=== PATIENT | male | born 1995 | race American Indian/Alaskan Native ===

== ENCOUNTER 2016-11-23 21:35 | Emergency (ER) | payer MEDICAID, OTHER ==
--- NOTE | 2016-11-23 21:47 | EDM.PDOC ---
ED HPI GENERAL MEDICAL PROBLEM - General Chief Complaint: Abdominal Pain Stated Complaint: ABD PAIN Time Seen by Provider: 11/23/16 21:44 Source of Information: Reports: Patient History Limitations: Reports: No Limitations - History of Present Illness INITIAL COMMENTS - FREE TEXT/NARRATIVE: c/o abd' pain since Thursday, initially @ RLQ, then moved to periumb, unable eat anything pain on off and not going away. been holding down liquids OK. no diarrhoea. Middle Abdomen Pain Score (Numeric/FACES): 6 - Related Data Allergies Allergy/AdvReac Type Severity Reaction Status Date / Time Penicillins Allergy Cannot Verified 11/23/16 21:41 Remember Home Meds: Home Meds . [No Known Home Meds] 02/24/15 [History] Past Medical History - Past Health History Medical/Surgical History: Denies Medical/Surgical History - Past Surgical History Other Musculoskeletal Surgeries/Procedures:: right elbow surgery Social & Family History - Tobacco Use Smoking Status *Q: Never Smoker Years of Tobacco use: 2 Second Hand Smoke Exposure: Yes - Recreational Drug Use Recreational Drug Use: No - Living Situation & Occupation Living situation: Reports: with Family Occupation: Student ED ROS GENERAL - Review of Systems Review Of Systems: ROS reveals no pertinent complaints other than HPI. ED EXAM, GI/ABD - Physical Exam Exam: See Below Exam Limited By: No Limitations General Appearance: Alert, WD/WN, Mild Distress, Other (disomfort) Ears: Hearing Grossly Normal Throat/Mouth: Normal Voice, No Airway Compromise Head: Atraumatic Neck: Non-Tender, Full Range of Motion Respiratory/Chest: No Respiratory Distress Cardiovascular: Regular Rate, Rhythm GI/Abdominal: Hyperactive Bowel Sounds, Tenderness, Other (periumb' splinting>) . No: Distention, Guarding, Rebound, Rigidity Neurological: Alert, Oriented, Normal Cognition, Normal Gait, No Motor/Sensory Deficits Psychiatric: Flat Affect Skin Exam: Warm, Dry Lymphatic: No Adenopathy Course - Vital Signs Last Recorded V/S: Last Vital Signs Temp 35.9 C 11/23/16 21:43 Pulse 83 11/23/16 21:43 Resp 16 11/23/16 21:43 BP 129/65 11/23/16 21:43 Pulse Ox 100 11/23/16 21:43 - Orders/Labs/Meds Labs: Laboratory Tests 05/14/17 05/14/17 Range/Units 21:48 21:48 WBC 13.3 H (5.0-10.0) 10^3/uL RBC 5.36 (4.6-6.2) 10^6/uL Hgb 17.0 (14.0-18.0) g/dL Hct 48.1 (40.0-54.0) % MCV 89.7 (80-100) fL MCH 31.7 (27.0-34.0) pg MCHC 35.3 H (33.0-35.0) g/dL Plt Count 198 (150-450) 10^3/uL Neut % (Auto) 79.6 H (42.2-75.2) % Lymph % (Auto) 11.1 L (20.5-50.1) % [place] % (Auto) 9.1 H (2-8) % Eos % (Auto) 0.1 L (1.0-3.0) % Baso % (Auto) 0.1 (0.0-1.0) % Sodium 134 L (135-145) mmol/L Potassium 3.2 L (3.6-5.0) mmol/L Chloride 101 (101-111) mmol/L Carbon Dioxide 23.0 (21.0-31.0) mmol/L Anion Gap 13.2 BUN 20 H (7-18) mg/dL Creatinine 1.2 (0.6-1.3) mg/dL Est Cr Clr Drug Dosing 92.92 mL/min Estimated GFR (MDRD) > 60 BUN/Creatinine Ratio 16.66 Glucose 125 H (74-105) mg/dL Calcium 9.8 (8.4-10.2) mg/dl Total Bilirubin 0.9 (0.2-1.0) mg/dL AST 31 (10-42) IU/L ALT 34 (10-60) IU/L Alkaline Phosphatase 60 (42-121) IU/L Total Protein 8.5 H (6.7-8.2) g/dl Albumin 5.4 (3.2-5.5) g/dl Globulin 3.1 Albumin/Globulin Ratio 1.74 Meds: Medications Discontinued Medications Generic Name Dose Route Start Last Admin Trade Name Freq PRN Reason Stop Dose Admin Sodium Chloride 1,000 mls @ 999 mls/hr 11/23/16 21:56 11/23/16 22:20 Normal Saline IV 11/23/16 22:56 999 mls/hr .BOLUS ONE Administration Iopamidol 75 ml 11/23/16 21:52 11/23/16 22:02 Isovue-300 (61%) IVPUSH 11/23/16 21:53 75 ml ONETIME ONE Administration - Re-Assessments/Exams Free Text/Narrative Re-Assessment/Exam: 11/23/16 23:11 results discussed with Pt who is feeling fine without c/o at present. states pain on off. Departure - Departure Time of Disposition: 23:12 Disposition: Home, Self-Care 01 Condition: good Clinical Impression: Gastroenteritis - Discharge Information Instructions: Abdominal Pain, Adult, [id number] Forms: ED Department Discharge Additional Instructions: 1) avoid solid foods next 48 hours 2) have popsicle, jello, juice 3) follow up at clinic or recheck as needed
[2016-11-23] MEDS ORDERED: Iopamidol 612 MG/ML 75 ML Bottle IVPUSH ONE (21:52)
[2016-11-23] MEDS ORDERED: Sodium Chloride 0.9% 1,000 ML IV ONE (21:56)
[2016-11-23 22:17] LABS: CHLORIDE,CL 101 mmol/L (101-111); SODIUM,NA 134 mmol/L (135-145)
[2016-11-23 23:13] VITALS: BP 122/66
== END 2016-11-23 23:17 | disposition home or self-care (01) ==
LOC: DL.ED 21:35
DX: K52.9 Noninfective gastroenteritis and colitis, unspecified (principal); Z88.0 Allergy status to penicillin
CPT/HCPCS: 36415; 74177; 80053; 85025; 96360; 99284; J7030; Q9967; 99283